=== PATIENT | male | born 1950 | race Caucasian/White ===

== ENCOUNTER 2020-10-03 11:32 | Inpatient (IN) | payer BC, OTHER ==
[2020-10-03 11:44] VITALS: BMI 26.6
[2020-10-03] MEDS ORDERED: BAMLANIVIMAB 700 MG in SODIUM CHLORIDE 250 ML IVPB ONE (12:04)
[2020-10-03] MEDS ORDERED: DEXAMETHASONE SOD PHOSPHATE 4 MG/1 ML VIAL IVPUSH ONE (14:21)
[2020-10-03 14:22] LABS: VENOUS BASE EXCESS -2.8 mmol/L (-2-2); VENOUS O2 SATURATION 42.8 % (70-80); VENOUS PCO2 40.7 mmHg (38-52); VENOUS PH 7.36 (7.310-7.410)
[2020-10-03 14:30] LABS: EOS % 0.1 % (0-4.5); HEMATOCRIT 39.2 % (35.4-49); HEMOGLOBIN 13.1 GM/dL (11.7-16.9); MCHC 33.5 g/dl (32.0-35.9); MEAN CELL VOLUME 89.7 fl (80-96); MEAN PLT VOLUME 7.9 fl (7.5-11.1); MONO % 1.5 % (3.8-10.2); NEUT % 94.4 % (42.8-82.8); PLATELET COUNT 224 K/MM3 (134-434); RBC 4.37 M/mm3 (4.00-5.60); WHITE BLOOD COUNT 7.3 K/mm3 (4.0-10.0)
[2020-10-03 14:39] LABS: INR 1.22 (0.83-1.09); PROTHROMBIN TIME (PATIENT) 14.7 SEC (9.7-13.0)
[2020-10-03 14:41] LABS: ACTIVATED PTT 33.2 SECONDS (25.2-36.5)
[2020-10-03 14:52] LABS: CHLORIDE 105 mmol/L (98-107); POTASSIUM 3.7 mmol/L (3.5-5.1); SODIUM 139 mmol/L (136-145)
[2020-10-03 14:55] LABS: ALBUMIN 2.9 g/dl (3.4-5.0); ANION GAP 8 MMOL/L (8-16); BLOOD UREA NITROGEN 14.6 mg/dL (7-18); CALCIUM 8.5 mg/dL (8.5-10.1); CO2 26 mmol/L (21-32); GLUCOSE,RANDOM 99 mg/dL (74-106)
[2020-10-03 14:59] LABS: LDH 285 U/L (87-246); SGOT/AST 17 U/L (15-37)
[2020-10-03 15:00] LABS: BILIRUBIN,TOTAL 0.8 mg/dL (0.2-1); TOT PROT 6.5 g/dl (6.4-8.2)
[2020-10-03 15:01] LABS: ALK PHOS 55 U/L (45-117)
[2020-10-03 15:04] LABS: SGPT/ALT 17 U/L (13-61)
[2020-10-03 15:18] LABS: ANISOCYTOSIS 1+; MACROCYTOSIS 0; PLATELET ESTIMATE NORMAL
[2020-10-03] MEDS ORDERED: SODIUM CHLORIDE 0.9% 500 ML INFUS.BAG IV ONE (15:55)
[2020-10-03] MEDS ORDERED: ACETAMINOPHEN 1000 MG/100 ML VIAL (NON FORMULARY) IVPB ONE (17:10)
[2020-10-03] MEDS ORDERED: ACETAMINOPHEN INJECTION 100 ML IVPB ONE (17:11)
[2020-10-03 17:54] LABS: EPI CELLS 10 /uL (0-25.1); HYALINE CASTS 2 /uL (0-3.1); URINE APPEARANCE CLEAR; URINE BACTERIA 54 /uL (0-1359); URINE BILIRUBIN NEGATIVE (NEGATIVE); URINE COLOR YELLOW; URINE GLUCOSE (UA) NEGATIVE (NEGATIVE); URINE KETONE TRACE (NEGATIVE); URINE LEUK ESTERASE NEGATIVE (NEGATIVE); URINE NITRITE NEGATIVE (NEGATIVE); URINE PROTEIN 2+ (NEGATIVE); URINE RBC 29 /uL (0-23.9); URINE UROBILINOGEN 0.2 mg/dL (0.2-1.0); URINE WBC 6 /uL (0-25.8)
[2020-10-04] MEDS: ALBUTEROL SO4 HFA INHALER IH PRN ×2 (03:52→21:07)
[2020-10-04] MEDS ORDERED: ACETAMINOPHEN 325 MG TABLET (FP) PO ONE (05:00)
[2020-10-04] MEDS ORDERED: ACETAMINOPHEN 1000 MG/100 ML VIAL (NON FORMULARY) IVPB PRN (07:26)
[2020-10-04] MEDS ORDERED: SODIUM CHLORIDE 1,000 ML IV SCH (07:30)
[2020-10-04 07:59] LABS: BASO % 0.1 % (0-2.0); HEMATOCRIT 36.7 % (35.4-49); HEMOGLOBIN 12.7 GM/dL (11.7-16.9); LYMPH % 2.1 % (8-40); MCH 30.2 pg (25.7-33.7); MCHC 34.7 g/dl (32.0-35.9); MEAN CELL VOLUME 87.1 fl (80-96); MEAN PLT VOLUME 7.9 fl (7.5-11.1); MONO % 2.5 % (3.8-10.2); NEUT % 95.3 % (42.8-82.8); PLATELET COUNT 272 K/MM3 (134-434); RBC 4.21 M/mm3 (4.00-5.60); RDW 18.1 % (11.9-15.9); WHITE BLOOD COUNT 8.3 K/mm3 (4.0-10.0)
[2020-10-04 08:39] LABS: POTASSIUM 4.3 mmol/L (3.5-5.1)
[2020-10-04 08:43] LABS: ALBUMIN 2.4 g/dl (3.4-5.0); BLOOD UREA NITROGEN 15.7 mg/dL (7-18); CALCIUM 8.3 mg/dL (8.5-10.1)
[2020-10-04 08:46] LABS: CREATININE 0.8 mg/dL (0.55-1.3); PHOSPHOROUS 1.3 mg/dL (2.5-4.9)
[2020-10-04 08:47] LABS: BILIRUBIN,TOTAL 0.6 mg/dL (0.2-1); TOT PROT 5.9 g/dl (6.4-8.2)
[2020-10-04 09:40] LABS: OVALOCYTE 1+; PLATELET ESTIMATE NORMAL; ROULEAU 1+
[2020-10-04] MEDS: ASPIRIN COATED 81 MG TABLET.EC PO SCH (09:53)
[2020-10-04] MEDS: LOSARTAN POTASSIUM 25 MG TABLET PO SCH (09:53)
[2020-10-04] MEDS: DEXAMETHASONE SOD PHOSPHATE 10 MG/1 ML VIAL IVPUSH SCH (09:54)
[2020-10-04] MEDS: ENOXAPARIN NA (PORCINE) 40 MG/0.4 ML DISP.SYRIN SQ SCH ×2 (09:54→21:07)
[2020-10-04] MEDS: FAMOTIDINE 20 MG/50 ML IVPB 20 MG/50 ML MG IVPB SCH ×2 (09:55→21:07)
[2020-10-04] MEDS ORDERED: ENOXAPARIN NA (PORCINE) 40 MG/0.4 ML DISP.SYRIN SQ SCH (10:00)
[2020-10-04] MEDS ORDERED: DEXAMETHASONE SOD PHOSPHATE 10 MG/1 ML VIAL IVPUSH SCH ×2 (10:00)
[2020-10-04] MEDS ORDERED: PANTOPRAZOLE SODIUM 40 MG VIAL IVPUSH SCH (10:00)
[2020-10-04] MEDS ORDERED: POTASSIUM PHOSPHATE 30 MM in DEXTROSE 5%-WATER - 500 ML IVPB ONE (10:02)
[2020-10-04] MEDS ORDERED: REMDESIVIR 200 MG in SODIUM CHLORIDE 210 ML IVPB ONE (10:30)
[2020-10-04] MEDS ORDERED: PATIENT'S OWN MEDICATION (NON-FORMULARY) (Lenalidomide [Revlimid] 5 MG Capsule) PO SCH (17:47)
[2020-10-05 08:06] LABS: IGA IMMUNOGLOBULIN 520 mg/dL (61-437); IGG QN IMMUNOGLOBULIN 427 mg/dL (603-1613); IGM QN SERUM 8 mg/dL (20-172)
[2020-10-05 09:09] LABS: BASO % 0.1 % (0-2.0); HEMATOCRIT 35.4 % (35.4-49); HEMOGLOBIN 12.1 GM/dL (11.7-16.9); LYMPH % 3.3 % (8-40); MCH 29.9 pg (25.7-33.7); MCHC 34.1 g/dl (32.0-35.9); MEAN CELL VOLUME 87.4 fl (80-96); MEAN PLT VOLUME 8.1 fl (7.5-11.1); NEUT % 92.6 % (42.8-82.8); PLATELET COUNT 272 K/MM3 (134-434); RBC 4.05 M/mm3 (4.00-5.60); RDW 18.2 % (11.9-15.9); WHITE BLOOD COUNT 5.5 K/mm3 (4.0-10.0)
[2020-10-05] MEDS: LOSARTAN POTASSIUM 25 MG TABLET PO SCH (10:04)
[2020-10-05] MEDS: ASPIRIN COATED 81 MG TABLET.EC PO SCH (10:04)
[2020-10-05] MEDS: REMDESIVIR 100 MG in SODIUM CHLORIDE 230 ML IVPB SCH (10:04)
[2020-10-05] MEDS: DEXAMETHASONE SOD PHOSPHATE 10 MG/1 ML VIAL IVPUSH SCH (10:04)
[2020-10-05] MEDS: FAMOTIDINE 20 MG TABLET PO SCH ×2 (10:04→21:02)
[2020-10-05] MEDS: ENOXAPARIN NA (PORCINE) 40 MG/0.4 ML DISP.SYRIN SQ SCH ×2 (10:04→21:27)
[2020-10-05 10:47] LABS: ANISOCYTOSIS 1+; MACROCYTOSIS 0; OVALOCYTE 1+; PLATELET ESTIMATE NORMAL; TARGET CELLS 1+
[2020-10-05 12:04] LABS: PHOSPHOROUS 3.1 mg/dL (2.5-4.9)
[2020-10-05 16:45] LABS: POTASSIUM 4.7 mmol/L (3.5-5.1)
[2020-10-05 16:47] LABS: CALCIUM 8.5 mg/dL (8.5-10.1)
[2020-10-05 16:48] LABS: ALBUMIN 2.4 g/dl (3.4-5.0); BLOOD UREA NITROGEN 20.7 mg/dL (7-18)
[2020-10-05 16:51] LABS: CREATININE 0.8 mg/dL (0.55-1.3)
[2020-10-05 16:53] LABS: BILIRUBIN,TOTAL 0.4 mg/dL (0.2-1)
[2020-10-05] MEDS: ALBUTEROL SO4 HFA INHALER IH SCH ×2 (18:02→21:01)
[2020-10-05] MEDS ORDERED: PT OWN MED DRAWER 7, Y5N ONE (20:46)
[2020-10-05] MEDS: BUDESONIDE/FORMETEROL FUMARATE 160/4.5 mcg INHALER IH SCH (21:02)
[2020-10-06 07:51] LABS: BASO % 0.1 % (0-2.0); HEMATOCRIT 37.8 % (35.4-49); LYMPH % 4.3 % (8-40); MCH 30.2 pg (25.7-33.7); MCHC 34.4 g/dl (32.0-35.9); MEAN CELL VOLUME 87.8 fl (80-96); MEAN PLT VOLUME 7.7 fl (7.5-11.1); MONO % 6.1 % (3.8-10.2); NEUT % 89.5 % (42.8-82.8); PLATELET COUNT 342 K/MM3 (134-434); RDW 18.7 % (11.9-15.9); WHITE BLOOD COUNT 4.6 K/mm3 (4.0-10.0)
[2020-10-06 08:37] LABS: PHOSPHOROUS 3.6 mg/dL (2.5-4.9)
[2020-10-06] MEDS: LOSARTAN POTASSIUM 25 MG TABLET PO SCH (09:36)
[2020-10-06] MEDS: ENOXAPARIN NA (PORCINE) 40 MG/0.4 ML DISP.SYRIN SQ SCH ×2 (09:37→22:34)
[2020-10-06] MEDS: DEXAMETHASONE SOD PHOSPHATE 10 MG/1 ML VIAL IVPUSH SCH (09:37)
[2020-10-06] MEDS: ASPIRIN COATED 81 MG TABLET.EC PO SCH (09:37)
[2020-10-06] MEDS: FAMOTIDINE 20 MG TABLET PO SCH ×2 (09:38→22:35)
[2020-10-06] MEDS: ALBUTEROL SO4 HFA INHALER IH SCH ×4 (09:38→20:15)
[2020-10-06] MEDS: REMDESIVIR 100 MG in SODIUM CHLORIDE 230 ML IVPB SCH (09:38)
[2020-10-06] MEDS: BUDESONIDE/FORMETEROL FUMARATE 160/4.5 mcg INHALER IH SCH ×2 (09:38→22:35)
[2020-10-06 16:21] LABS: POTASSIUM 4.2 mmol/L (3.5-5.1)
[2020-10-06 16:25] LABS: ALBUMIN 2.4 g/dl (3.4-5.0); CALCIUM 8.6 mg/dL (8.5-10.1)
[2020-10-06 16:29] LABS: CREATININE 0.8 mg/dL (0.55-1.3)
[2020-10-06 16:30] LABS: BILIRUBIN,TOTAL 0.6 mg/dL (0.2-1); TOT PROT 5.9 g/dl (6.4-8.2)
[2020-10-07 04:54] LABS: ALBUMIN 2.6 g/dl (3.4-5.0)
[2020-10-07 04:56] LABS: BILIRUBIN,DIRECT 0.2 mg/dL (0.0-0.2)
[2020-10-07 04:58] LABS: BILIRUBIN,TOTAL 0.5 mg/dL (0.2-1)
[2020-10-07] MEDS ORDERED: PT OWN MED DRAWER 7, Y5N ONE (09:08)
[2020-10-07] MEDS: LOSARTAN POTASSIUM 25 MG TABLET PO SCH (09:38)
[2020-10-07] MEDS: FAMOTIDINE 20 MG TABLET PO SCH ×2 (09:38→21:02)
[2020-10-07] MEDS: ASPIRIN COATED 81 MG TABLET.EC PO SCH (09:38)
[2020-10-07] MEDS: ALBUTEROL SO4 HFA INHALER IH SCH ×4 (09:38→20:58)
[2020-10-07] MEDS: ENOXAPARIN NA (PORCINE) 40 MG/0.4 ML DISP.SYRIN SQ SCH ×2 (09:39→21:01)
[2020-10-07] MEDS: DEXAMETHASONE SOD PHOSPHATE 10 MG/1 ML VIAL IVPUSH SCH (09:39)
[2020-10-07] MEDS: REMDESIVIR 100 MG in SODIUM CHLORIDE 230 ML IVPB SCH (09:40)
[2020-10-07] MEDS: BUDESONIDE/FORMETEROL FUMARATE 160/4.5 mcg INHALER IH SCH ×2 (09:40→21:02)
[2020-10-08 06:57] LABS: HEMATOCRIT 36.5 % (35.4-49); HEMOGLOBIN 12.6 GM/dL (11.7-16.9); MCH 30.2 pg (25.7-33.7); MCHC 34.4 g/dl (32.0-35.9); MEAN CELL VOLUME 87.8 fl (80-96); MEAN PLT VOLUME 7.4 fl (7.5-11.1); PLATELET COUNT 398 K/MM3 (134-434); RBC 4.16 M/mm3 (4.00-5.60); RDW 18.6 % (11.9-15.9); WHITE BLOOD COUNT 5.8 K/mm3 (4.0-10.0)
[2020-10-08 07:44] LABS: POTASSIUM 4.4 mmol/L (3.5-5.1)
[2020-10-08 08:03] LABS: CALCIUM 8.9 mg/dL (8.5-10.1)
[2020-10-08 08:04] LABS: ALBUMIN 2.5 g/dl (3.4-5.0)
[2020-10-08 08:05] LABS: BLOOD UREA NITROGEN 22.4 mg/dL (7-18); MAGNESIUM 1.9 mg/dL (1.8-2.4)
[2020-10-08 08:07] LABS: CREATININE 0.5 mg/dL (0.55-1.3)
[2020-10-08 08:08] LABS: BILIRUBIN,TOTAL 0.9 mg/dL (0.2-1); PHOSPHOROUS 2.7 mg/dL (2.5-4.9); TOT PROT 5.9 g/dl (6.4-8.2)
[2020-10-08] MEDS: DEXAMETHASONE SOD PHOSPHATE 10 MG/1 ML VIAL IVPUSH SCH (09:33)
[2020-10-08] MEDS: ASPIRIN COATED 81 MG TABLET.EC PO SCH (09:33)
[2020-10-08] MEDS: LOSARTAN POTASSIUM 25 MG TABLET PO SCH (09:33)
[2020-10-08] MEDS: FAMOTIDINE 20 MG TABLET PO SCH ×2 (09:34→21:12)
[2020-10-08] MEDS: ALBUTEROL SO4 HFA INHALER IH SCH ×4 (09:45→21:12)
[2020-10-08] MEDS: ENOXAPARIN NA (PORCINE) 40 MG/0.4 ML DISP.SYRIN SQ SCH ×2 (09:45→21:12)
[2020-10-08] MEDS: BUDESONIDE/FORMETEROL FUMARATE 160/4.5 mcg INHALER IH SCH ×2 (09:45→21:12)
[2020-10-08] MEDS: REMDESIVIR 100 MG in SODIUM CHLORIDE 230 ML IVPB SCH (11:53)
[2020-10-09 07:16] LABS: HEMATOCRIT 35.6 % (35.4-49); MCHC 33.9 g/dl (32.0-35.9); MEAN CELL VOLUME 88.6 fl (80-96); MEAN PLT VOLUME 7.2 fl (7.5-11.1); PLATELET COUNT 413 K/MM3 (134-434); RBC 4.01 M/mm3 (4.00-5.60); RDW 18.5 % (11.9-15.9); WHITE BLOOD COUNT 5.7 K/mm3 (4.0-10.0)
[2020-10-09 07:30] LABS: POTASSIUM 4.5 mmol/L (3.5-5.1)
[2020-10-09 07:38] LABS: ALBUMIN 2.4 g/dl (3.4-5.0); CALCIUM 8.6 mg/dL (8.5-10.1)
[2020-10-09 07:39] LABS: BLOOD UREA NITROGEN 20.8 mg/dL (7-18)
[2020-10-09 07:40] LABS: MAGNESIUM 1.9 mg/dL (1.8-2.4)
[2020-10-09 07:41] LABS: CREATININE 0.6 mg/dL (0.55-1.3)
[2020-10-09 07:42] LABS: BILIRUBIN,TOTAL 0.6 mg/dL (0.2-1); PHOSPHOROUS 2.7 mg/dL (2.5-4.9); TOT PROT 5.6 g/dl (6.4-8.2)
[2020-10-09] MEDS: ALBUTEROL SO4 HFA INHALER IH SCH ×4 (07:59→20:20)
[2020-10-09] MEDS: FAMOTIDINE 20 MG TABLET PO SCH ×2 (10:24→21:20)
[2020-10-09] MEDS: ASPIRIN COATED 81 MG TABLET.EC PO SCH (10:24)
[2020-10-09] MEDS: ENOXAPARIN NA (PORCINE) 40 MG/0.4 ML DISP.SYRIN SQ SCH ×2 (10:24→21:20)
[2020-10-09] MEDS: DEXAMETHASONE SOD PHOSPHATE 10 MG/1 ML VIAL IVPUSH SCH (10:24)
[2020-10-09] MEDS: LOSARTAN POTASSIUM 25 MG TABLET PO SCH (10:25)
[2020-10-09] MEDS: BUDESONIDE/FORMETEROL FUMARATE 160/4.5 mcg INHALER IH SCH ×2 (10:26→21:20)
[2020-10-10 07:39] LABS: HEMATOCRIT 37.9 % (35.4-49); HEMOGLOBIN 12.8 GM/dL (11.7-16.9); MCH 30.1 pg (25.7-33.7); MCHC 33.7 g/dl (32.0-35.9); MEAN CELL VOLUME 89.2 fl (80-96); MEAN PLT VOLUME 7.5 fl (7.5-11.1); PLATELET COUNT 445 K/MM3 (134-434); RBC 4.24 M/mm3 (4.00-5.60); RDW 18.5 % (11.9-15.9); WHITE BLOOD COUNT 5.2 K/mm3 (4.0-10.0)
[2020-10-10 08:04] LABS: POTASSIUM 4.6 mmol/L (3.5-5.1)
[2020-10-10 08:21] LABS: CALCIUM 9.3 mg/dL (8.5-10.1)
[2020-10-10 08:22] LABS: ALBUMIN 2.5 g/dl (3.4-5.0); BLOOD UREA NITROGEN 23.8 mg/dL (7-18)
[2020-10-10 08:24] LABS: CREATININE 0.6 mg/dL (0.55-1.3); PHOSPHOROUS 2.8 mg/dL (2.5-4.9)
[2020-10-10 08:25] LABS: BILIRUBIN,TOTAL 0.6 mg/dL (0.2-1)
[2020-10-10 08:26] LABS: TOT PROT 5.9 g/dl (6.4-8.2)
[2020-10-10] MEDS: LOSARTAN POTASSIUM 25 MG TABLET PO SCH (09:31)
[2020-10-10] MEDS: DEXAMETHASONE SOD PHOSPHATE 10 MG/1 ML VIAL IVPUSH SCH (09:32)
[2020-10-10] MEDS: FAMOTIDINE 20 MG TABLET PO SCH ×2 (09:32→21:58)
[2020-10-10] MEDS: ENOXAPARIN NA (PORCINE) 40 MG/0.4 ML DISP.SYRIN SQ SCH ×2 (09:32→21:58)
[2020-10-10] MEDS: ASPIRIN COATED 81 MG TABLET.EC PO SCH (09:32)
[2020-10-10] MEDS: BUDESONIDE/FORMETEROL FUMARATE 160/4.5 mcg INHALER IH SCH ×2 (09:32→21:58)
[2020-10-10] MEDS: ALBUTEROL SO4 HFA INHALER IH SCH ×4 (09:32→21:58)
[2020-10-11 07:02] VITALS: BP 102/67; PULSE 48; TEMP 98.2
[2020-10-11 07:24] LABS: BASO % 0.1 % (0-2.0); EOS % 1.3 % (0-4.5); HEMOGLOBIN 12.5 GM/dL (11.7-16.9); LYMPH % 12.2 % (8-40); MCH 30.5 pg (25.7-33.7); MCHC 34.6 g/dl (32.0-35.9); MEAN CELL VOLUME 88.2 fl (80-96); MEAN PLT VOLUME 7.2 fl (7.5-11.1); NEUT % 79.4 % (42.8-82.8); PLATELET COUNT 490 K/MM3 (134-434); RBC 4.08 M/mm3 (4.00-5.60); RDW 18.2 % (11.9-15.9); WHITE BLOOD COUNT 5.7 K/mm3 (4.0-10.0)
[2020-10-11 07:41] LABS: POTASSIUM 4.6 mmol/L (3.5-5.1)
[2020-10-11 07:42] LABS: CALCIUM 9.1 mg/dL (8.5-10.1)
[2020-10-11 07:43] LABS: ALBUMIN 2.5 g/dl (3.4-5.0); BLOOD UREA NITROGEN 24.6 mg/dL (7-18)
[2020-10-11 07:45] LABS: CREATININE 0.7 mg/dL (0.55-1.3)
[2020-10-11 07:47] LABS: BILIRUBIN,TOTAL 0.5 mg/dL (0.2-1); TOT PROT 5.9 g/dl (6.4-8.2)
[2020-10-11] MEDS ORDERED: PT OWN MED DRAWER 7, Y5N ONE (08:59)
[2020-10-11] MEDS: FAMOTIDINE 20 MG TABLET PO SCH (09:52)
[2020-10-11] MEDS: LOSARTAN POTASSIUM 25 MG TABLET PO SCH (09:52)
[2020-10-11] MEDS: ASPIRIN COATED 81 MG TABLET.EC PO SCH (09:52)
[2020-10-11] MEDS: ALBUTEROL SO4 HFA INHALER IH SCH (09:54)
[2020-10-11] MEDS: ENOXAPARIN NA (PORCINE) 40 MG/0.4 ML DISP.SYRIN SQ SCH (09:54)
[2020-10-11] MEDS: BUDESONIDE/FORMETEROL FUMARATE 160/4.5 mcg INHALER IH SCH (09:55)
[2020-10-11] MEDS ORDERED: DEXAMETHASONE 4 MG TABLET (FP) PO SCH (10:00)
[2020-10-11 10:15] LABS: ANISOCYTOSIS 0; MACROCYTOSIS 0; PLATELET ESTIMATE NORMAL
== END 2020-10-11 13:27 | disposition home or self-care (01) | DRG 177 ==
LOC: JER 11:32 → JERBED 16:38 → J4S 18:34
PROVIDERS: ADMIT Internal Medicine; ATTEND Internal Medicine
PROC: XW033E5 Introduction of Remdesivir Anti-infective into Peripheral Vein, Percutaneous Approach, New Technology Group 5 (ICD-10-PCS; principal; 2020-10-04)
PROC: XW13325 Transfusion of Convalescent Plasma (Nonautologous) into Peripheral Vein, Percutaneous Approach, New Technology Group 5 (ICD-10-PCS; 2020-10-04)
DX: U07.1 COVID-19 (principal); J96.01 Acute respiratory failure with hypoxia; J12.82 Pneumonia due to coronavirus disease 2019; I10 Essential (primary) hypertension; D89.89 Other specified disorders involving the immune mechanism, not elsewhere classified; R21 Rash and other nonspecific skin eruption; E83.39 Other disorders of phosphorus metabolism
CPT/HCPCS: 36415; 36430; 71045-TC-FY; 80053; 80076; 81003; 82550; 82728; 82784; 82803; 83605; 83615; 83735; 84100; 84484; 85025; 85027; 85379; 85610; 85730; 86140; 86769; 86850; 86900; 86901; 87040; 87086; 87804; 87899; 93005; 93010; 94010; 94761; 97116-GP; 97161-GP; 99285-25; C9399; C9803; J0131; J1100; P9017; U0003